=== PATIENT | male | born 1985 | race Caucasian/White ===

== ENCOUNTER 2019-02-03 15:30 | Inpatient (IN) | payer OTHER ==
[2019-02-03] MEDS ORDERED: MORPHINE SULFATE 2 MG/ML SYRINGE IVP STA ×2 (15:33→16:03)
[2019-02-03] MEDS ORDERED: ATORVASTATIN 80 MG TAB PO STA (15:41)
[2019-02-03] MEDS ORDERED: SODIUM CHLORIDE 0.9% 1,000 ML IV ONE ×2 (15:48→16:25)
[2019-02-03] MEDS ORDERED: NALOXONE 0.4 MG/ML 1 ML VIAL IV PRN (15:48)
[2019-02-03] MEDS ORDERED: HEPARIN SODIUM,PORCINE 5,000 UNIT/ML 1 ML VIAL IV STA (15:48)
[2019-02-03 16:04] LABS: Basophils # (A) 0.1 k/uL (0-0.2); Basophils % (A) 1 %; Eosinophils # (A) 0.3 k/uL (0-0.7); Eosinophils % (A) 3 %; HCT 39.6 % (39.0-53.0); Lymphocytes # (A) 3.1 k/uL (1.0-4.8); Lymphocytes % (A) 30 %; MCH 28.9 pg (25.0-35.0); MCHC 32.9 g/dL (31.0-37.0); MCV 87.8 fL (80.0-100.0); Mean Platelet Volume 7.7; Monocytes # (A) 0.9 k/uL (0-1.0); Monocytes % (A) 8 %; Neutrophils # (A) 5.4 k/uL (1.3-7.7); Neutrophils % (A) 53 %; Platelet Count 263 k/uL (150-450); RDW 12.7 % (11.5-15.5); WBC 10.1 k/uL (3.8-10.6)
[2019-02-03] MEDS ORDERED: LIDOCAINE 1% INJ 10MG/ML (20 ML MDV) ONE ×2 (16:08→16:29)
--- NOTE | 2019-02-03 16:11 | ED ---
General Adult HPI - General Chief complaint: Chest Pain Stated complaint: Chest Pain Time Seen by Provider: 02/03/19 15:33 Source: patient, EMS, RN notes reviewed Mode of arrival: EMS Limitations: no limitations - History of Present Illness Initial comments: 33-year-old male history of obesity, diabetes and Hodgkin's lymphoma on chemotherapy, presenting with sudden onset chest pain, syncope and head injury. Patient transported by EMS as a priority 1 with EKG evidence of acute ST segment elevated MT. Presenting with central chest pain diaphoresis and nausea. Pain began approximately one hour ago and has steadily worsened over that hours. He did have a syncopal episode with head trauma and LOC. He has a laceration above the left eye. Denied focal numbness or weakness. Denies abdominal pain. Denies any extremity pain or weakness. - Related Data Allergies Allergy/AdvReac Type Severity Reaction Status Date / Time No Known Allergies Allergy Verified 02/03/19 15:41 Review of Systems ROS Statement: Those systems with pertinent positive or pertinent negative responses have been documented in the HPI. ROS Other: All systems not noted in ROS Statement are negative. Past Medical History Past Medical History: Diabetes Mellitus Additional Past Medical History / Comment(s): hypothyroidism History of Any Multi-Drug Resistant Organisms: None Reported Past Surgical History: No Surgical Hx Reported Past Psychological History: No Psychological Hx Reported Smoking Status: Never smoker Past Alcohol Use History: None Reported Past Drug Use History: None Reported General Exam Limitations: no limitations General appearance: alert, in distress Head exam: Present: normocephalic. Absent: atraumatic (forehead contusion and laceration above the left eyebrow) Neck exam: Present: normal inspection. Absent: tenderness, meningismus Respiratory exam: Present: normal lung sounds bilaterally. Absent: respiratory distress, wheezes, rales Cardiovascular Exam: Present: regular rate, normal rhythm GI/Abdominal exam: Present: soft. Absent: distended, tenderness, guarding Extremities exam: Present: normal inspection, normal capillary refill, other (2+ bilateral radial and PT pulses) Neurological exam: Present: alert, oriented X3, CN II-XII intact. Absent: motor sensory deficit Psychiatric exam: Present: normal affect, normal mood Skin exam: Present: diaphoretic, pallor. Absent: warm, intact (1.5 cm laceration above the left eyebrow) Course Vital Signs 02/03/19 15:33 Temperature 98.6 F Pulse Rate 78 Respiratory 20 Rate Blood Pressure 101/60 O2 Sat by Pulse 100 Oximetry EKG Findings - EKG Comments: EKG Findings:: EKG: Acute MT, ST segment elevation in both the inferior and lateral precordial leads. ST segment depression in aVL and V1 and V2. Acute inferior MT. Rate of 79, NC interval 188, QRS duration 94, QTC 474. Procedures - Laceration Laceration #1 Consent Obtained: verbal consent Indication: laceration Site: face Description: linear Depth: simple, single layer Pre-repair: wound explored Type of Sutures: other Size of Sutures: other (skin good) Patient Tolerated Procedure: well Additional Comments: repaired with skin glue Medical Decision Making - Medical Decision Making 33-year-old male presenting with acute ST segment elevated MT, inferior elevation. Dyed [employer] Blower Feeder was immediately activated, case is discussed with cardiology. cardiology, Dr. Donahue is in-house and will take the patient for urgent heart catheterization, agrees with plan for urgent head CT. Given the head injury with loss consciousness and need for anticoagulation patient does receive head CT in the emergency department prior to transfer to the [employer]ed [employer] Blower Feeder. This was reviewed by myself in negative for intracranial hemorrhage. He was gi pepe aspirin by EMS as well as nitroglycerin prior to arrival. He is given a Lipitor, morphine, IV fluids, and heparin in the emergency department. He is transported immediately to the heart catheterization laboratory awaiting laboratory testing. diagnosis: ST segment elevated MT - Lab Data Result diagrams: 02/03/19 15:45 02/03/19 15:45 Lab Results 02/03/19 02/03/19 02/03/19 Range/Units 15:45 15:45 15:45 WBC 10.1 (3.8-10.6) k/uL RBC 4.50 (4.30-5.90) m/uL Hgb 13.0 (13.0-17.5) gm/dL Hct 39.6 (39.0-53.0) % MCV 87.8 (80.0-100.0) fL MCH 28.9 (25.0-35.0) pg MCHC 32.9 (31.0-37.0) g/dL RDW 12.7 (11.5-15.5) % Plt Count 263 (150-450) k/uL Neutrophils % 53 % Lymphocytes % 30 % Monocytes % 8 % Eosinophils % 3 % Basophils % 1 % Neutrophils # 5.4 (1.3-7.7) k/uL Lymphocytes # 3.1 (1.0-4.8) k/uL Monocytes # 0.9 (0-1.0) k/uL Eosinophils # 0.3 (0-0.7) k/uL Basophils # 0.1 (0-0.2) k/uL PT 9.9 (9.0-12.0) sec INR 0.9 (<1.2) APTT 21.7 L (22.0-30.0) sec Sodium 140 (137-145) mmol/L Potassium 3.5 (3.5-5.1) mmol/L Chloride 106 (98-107) mmol/L Carbon Dioxide 22 (22-30) mmol/L Anion Gap 12 mmol/L BUN 21 H (9-20) mg/dL Creatinine 0.91 (0.66-1.25) mg/dL Est GFR (CKD-EPI)AfAm >90 (>60 ml/min/1.73 sqM) Est GFR (CKD-EPI)NonAf >90 (>60 ml/min/1.73 sqM) Glucose 168 H (74-99) mg/dL Calcium 9.3 (8.4-10.2) mg/dL Magnesium 1.7 (1.6-2.3) mg/dL Total Bilirubin 0.8 (0.2-1.3) mg/dL AST 36 (17-59) U/L ALT 35 (4-49) U/L Alkaline Phosphatase 85 (38-126) U/L Total Protein 7.1 (6.3-8.2) g/dL Albumin 4.3 (3.5-5.0) g/dL Critical Care Time Critical Care Time: Yes Total Critical Care Time: 35 Disposition Clinical Impression: ST elevation myocardial infarction (STEMI) Disposition: ADMITTED IP TO THIS HOSP Condition: Serious Is patient prescribed a controlled substance at d/c from ED?: No Time of Disposition: 15:50
[2019-02-03 16:12] LABS: ALT 35 U/L (4-49); AST 36 U/L (17-59); African American GFR (CKD) >90 (>60 ml/min/1.73 sqM); Albumin 4.3 g/dL (3.5-5.0); Alkaline Phosphatase 85 U/L (38-126); Anion Gap 12 mmol/L; Blood Urea Nitrogen 21 mg/dL (9-20); Calcium 9.3 mg/dL (8.4-10.2); Carbon Dioxide 22 mmol/L (22-30); Chloride 106 mmol/L (98-107); Glucose 168 mg/dL (74-99); Magnesium 1.7 mg/dL (1.6-2.3); Non-African American GFR(CKD) >90 (>60 ml/min/1.73 sqM); Potassium 3.5 mmol/L (3.5-5.1); Sodium 140 mmol/L (137-145); Total Bilirubin 0.8 mg/dL (0.2-1.3); Total Protein 7.1 g/dL (6.3-8.2)
--- NOTE | 2019-02-03 16:13 | XR ---
EXAMINATION TYPE: XR chest 1V portable DATE OF EXAM: 02/03/2019 COMPARISON: NONE HISTORY: Chest pain TECHNIQUE: Single view FINDINGS: Heart and mediastinum are normal. Lungs are clear. Costophrenic angles are clear. There are chest leads. IMPRESSION: No active cardiopulmonary disease. Normal heart.
--- NOTE | 2019-02-03 16:22 | CT ---
EXAMINATION TYPE: CT brain wo con DATE OF EXAM: 02/03/2019 COMPARISON: None HISTORY: Chest pain with syncopal episode. Left orbital laceration CT DLP: 1129.4 mGycm Automated exposure control for dose reduction was used. Ventricles have normal size. There is no mass effect nor midline shift. There is no sign of intracran ial hemorrhage. The calvarium is intact. There is mild mucosal thickening in the ethmoid sinuses. The re is mild left frontal sinus mucosal thickening. IMPRESSION: Normal CT scan of the brain. Ethmoid and frontal sinusitis.
[2019-02-03 16:27] LABS: INR 0.9 (<1.2); Prothrombin Time 9.9 sec (9.0-12.0)
[2019-02-03] MEDS ORDERED: MIDAZOLAM 2 MG/2 ML VIAL IV ONE (16:27)
[2019-02-03] MEDS ORDERED: LIDOCAINE 1% INJ 10MG/ML (20 ML MDV) SQ ONE (16:28)
[2019-02-03] MEDS ORDERED: HYDROmorphone 1 MG/ML 1 ML SYRINGE ONE (16:30)
[2019-02-03 16:32] LABS: Partial Thromboplastin Time 21.7 sec (22.0-30.0)
[2019-02-03] MEDS ORDERED: HYDROmorphone 1 MG/ML 1 ML SYRINGE IVP ONE (16:32)
[2019-02-03] MEDS ORDERED: BIVALIRUDIN BOLUS 250 MG/50 ML IV ONE (16:35)
[2019-02-03] MEDS ORDERED: ONDANSETRON 4 MG/2 ML VIAL ONE (16:36)
[2019-02-03] MEDS ORDERED: BIVALIRUDIN 250 MG in SODIUM CHLORIDE 0.9% 50 ML IV ONE (16:38)
[2019-02-03] MEDS ORDERED: ONDANSETRON 4 MG/2 ML VIAL IVP ONE (16:45)
[2019-02-03] MEDS ORDERED: TOPICAL SKIN ADHESIVE 1 EACH AMP TOPICAL ONE (16:48)
[2019-02-03] MEDS ORDERED: PRASUGREL 10 MG TAB ONE ×2 (16:48→17:33)
[2019-02-03] MEDS ORDERED: NITROGLYCERIN 1000MCG/10ML SYRINGE INTRACORON ONE (16:51)
[2019-02-03] MEDS ORDERED: PRASUGREL 10 MG TAB PO ONE ×2 (16:51→17:35)
[2019-02-03] MEDS ORDERED: IOPAMIDOL-370 125ML BTL INJ ONE (17:02)
[2019-02-03] MEDS ORDERED: ZOLPIDEM 5 MG TAB PO PRN (17:13)
[2019-02-03] MEDS ORDERED: ATROPINE SULFATE 0.1 MG/ML 10ML SYRINGE IV PRN (17:13)
[2019-02-03] MEDS ORDERED: RX INFO: IV CONTRAST WAS GIVEN 1 EACH MISC MISCELLANE PRN (17:13)
[2019-02-03] MEDS ORDERED: MAG HYDROX/AL HYDROX/SIMETH 30 ML CUP PO PRN (17:13)
[2019-02-03] MEDS ORDERED: NITROGLYCERIN SL TABS 0.4 MG TAB SUBLINGUAL PRN (17:13)
[2019-02-03] MEDS ORDERED: SODIUM CHLORIDE 0.9% 1,000 ML IV SCH (17:15)
--- NOTE | 2019-02-03 17:19 | P.CRDCN ---
History of Present Illness Consult date: 02/03/19 Chief complaint: chest pain History of present illness: this is a very pleasant 33-year-old gentleman who is [place] and was visiting the [place] for shopping with a past medical history significant for diabetes and also very significant family history of coronary artery disease with his father at age of 50 because of massive heart attack, was brought by ambulance to the emergency room because of acute anterior ST patient myocard ial infarction. The patient was doing shopping here at [employer] and he was sitting in the car waiting for his he started not feeling well where he started experiencing discomfort in the chest associated with sweating. He went out of the car and walked to the store to find his and at that point he was asked to sit till they page her. Certainly he collapsed and he lost his consciousness. Ambulance was called and the patient was found to be in acute inferior ST elevation myocardial infarction where I emergent heart catheterization was performed and revealed acute total occlusion of the right coronary artery in the midportion. I did perform an aspiration thrombectomy and I retrieved a large red clot from the right coronary artery. He was found to have severe plaque appears to be in the range of 90%. I did successful stenting of the right coronary artery using 2 stents with an excellent angiographic results and without excellent angiographic results and reduction of stenosis and 100% to 0%. The procedure was performed without any complication was ARASH-3 flow by the end as well as with the resulting of the ST changes as well as the chest discomfort. The patient will be admitted to the intensive care unit. He would be on dual antiplatelet therapy along with small dose of metoprolol as well as on lisinopril and also would be a high intensity statin. An echocardiogram will be performed to evaluate the left ventricular systolic function. Past Medical History Past Medical History: Diabetes Mellitus Additional Past Medical History / Comment(s): hypothyroidism History of Any Multi-Drug Resistant Organisms: None Reported Past Surgical History: No Surgical Hx Reported Past Psychological History: No Psychological Hx Reported Smoking Status: Never smoker Past Alcohol Use History: None Reported Past Drug Use History: None Reported Medications and Allergies Allergies Allergy/AdvReac Type Severity Reaction Status Date / Time No Known Allergies Allergy Verified 02/03/19 15:41 Physical Exam Vitals: Vital Signs Temp Pulse Resp BP Pulse Ox 02/03/19 15:38 74 101/68 02/03/19 15:33 98.6 F 78 20 101/60 100 Intake and Output 02/03/19 02/03/19 02/03/19 06:59 14:59 22:59 Intake Total 287 Balance 287 Intake: IV 287 Other: Weight 127.006 kg - Constitutional General appearance: no acute distress - Respiratory Respiratory: bilateral: CTA - Cardiovascular Rhythm: regular Heart sounds: normal: S1, S2 Results 02/03/19 15:45 02/03/19 15:45 Cardiac Enzymes 02/03/19 02/03/19 Range/Units 15:45 15:45 AST 36 (17-59) U/L Troponin I <0.012 (0.000-0.034) ng/mL Coagulation 02/03/19 Range/Units 15:45 PT 9.9 (9.0-12.0) sec APTT 21.7 L (22.0-30.0) sec CBC 02/03/19 Range/Units 15:45 WBC 10.1 (3.8-10.6) k/uL RBC 4.50 (4.30-5.90) m/uL Hgb 13.0 (13.0-17.5) gm/dL Hct 39.6 (39.0-53.0) % Plt Count 263 (150-450) k/uL Comprehensive Metabolic Panel 02/03/19 Range/Units 15:45 Sodium 140 (137-145) mmol/L Potassium 3.5 (3.5-5.1) mmol/L Chloride 106 (98-107) mmol/L Carbon Dioxide 22 (22-30) mmol/L BUN 21 H (9-20) mg/dL Creatinine 0.91 (0.66-1.25) mg/dL Glucose 168 H (74-99) mg/dL Calcium 9.3 (8.4-10.2) mg/dL AST 36 (17-59) U/L ALT 35 (4-49) U/L Alkaline Phosphatase 85 (38-126) U/L Total Protein 7.1 (6.3-8.2) g/dL Albumin 4.3 (3.5-5.0) g/dL Current Medications Generic Name Dose Route Start Last Admin Trade Name Freq PRN Reason Stop Dose Admin Naloxone HCl 0.2 mg 02/03/19 15:48 Narcan IV Q2M PRN Opioid Reversal Intake and Output 02/03/19 02/03/19 02/03/19 06:59 14:59 22:59 Intake Total 287 Balance 287 Intake: IV 287 Other: Weight 127.006 kg Patient Weight 02/04/19 06:59 Weight 127.006 kg 02/03/19 15:45 02/03/19 15:45 Assessment and Plan Assessment: assessment #[address] patient myocardial infarction #2 cardiac arrest secondary to the above #3 status post PCI of the RCA #4 diabetes #5 significant family history of coronary artery disease Plan #1 dual antiplatelet therapy along with high intensity statin #2 anti-ischemic medication using metoprolol as well as lisinopril #3 an echocardiogram to establish LV function #4 ICU admission #5 follow-up with the patient Thank you for allowing us participate in his care and we will continue following up with the patient
[2019-02-03 18:08] LABS: Glucose,Whole Blood 200 mg/dL (75-99)
[2019-02-03] MEDS ORDERED: Potassium Replacement Protocol 1 EACH MISC MISCELLANE PRN (19:50)
[2019-02-03] MEDS ORDERED: Magnesium Replacement Protocol 1 EACH MISC MISCELLANE PRN (19:50)
[2019-02-03] MEDS: POTASSIUM CHLORIDE ER 20 MEQ TAB.ER PO SCH ×2 (20:29→22:22)
[2019-02-03] MEDS: METOPROLOL TARTRATE 12.5 MG TAB PO SCH (20:29)
[2019-02-03] MEDS: MAGNESIUM SULFATE-D5W PMX 1 GM in DEXTROSE/WATER 1 100ML.BAG IVPB SCH ×2 (20:30→22:22)
[2019-02-03 20:45] LABS: Glucose,Whole Blood 160 mg/dL (75-99)
--- NOTE | 2019-02-03 22:33 | CC ---
CARDIAC CATHETERIZATION REPORT PERFORMING PHYSICIAN: Jim Donahue M.D. PROCEDURE PERFORMED: 1. Selective right and left coronary angiogram. 2. Left heart catheterization. 3. Successful stenting of the mid right coronary artery using 4.5 x 18 and 4.5 x 13 mm multilink bare metal stent with an excellent angiographic results and reduction of stenosis from 100% to 0%. INDICATION: This is a 33-year-old gentleman with diabetes and significant family history of CAD, was brought to the emergency room with chest discomfort and was diagnosed with acute anterior ST-elevation myocardial infarction. An emergent heart catheterization was advised. APPROACH: Right common femoral artery. COMPLICATION: None. LEVEL OF SEDATION: Moderate with sedation length of 36 minutes. Door to balloon was 70 minutes. DESCRIPTION OF PROCEDURE: After obtaining informed consent, the patient was brought to the cardiac manager labor delivery. The right common femoral artery was cannulated using micropuncture technique, the micropuncture wire passed easily. Then I placed a 6-Macedonian sheath in the right common femoral artery. After that I did selective right and left coronary angiogram with JR4 and JL4 catheters. Left heart catheterization was performed using the JR4 catheter which crossed the aortic valve and then I did pullback across aortic valve. After that I did intervene on the right coronary artery please see a separate paragraph for that. SELECTIVE CORONARY ANGIOGRAM: 1. The right coronary artery is a large caliber vessel. It is a dominant vessel. The RCA is 100% occluded in the midportion. 2. The left main is angiographically normal. It bifurcates into LCX and LAD. 3. The LCX is a large caliber vessel. It is a nondominant vessel. The left circumflex appeared to be angiographically normal. It gives rise into 3 obtuse marginal branches. All are medium caliber vessel without any significant disease. 4. The LAD: The proximal LAD appeared to be angiographically normal. The proximal LAD appeared to have mild disease only. It gives rise into a large diagonal branch which seems to be angiographically normal. The mid LAD appeared to be normal and the LAD distally appeared to have mild disease only. HEMODYNAMICS: The LVEDP was about 12-14 mmHg without significant gradient across the aortic valve. PCI OF THE RCA: Anticoagulation was achieved using Angiomax with bolus and drip. After that, I took JR4 guide and the RCA was engaged. I did cross the lesion using a run-through wire. After that I did aspiration thrombectomy using an Rentz catheter with extraction of large red thrombus. After that, I tried to do balloon angioplasty using 3.5 x 12 mm balloon but the balloon was sludging forward or backward. At that point, I decided to go with a stent so I deployed 4.5 x 18 mm multilink bare metal stent where the stent was positioned under fluoroscopy guidance and deployed under 20 atmospheres for 20 seconds. The following angiogram showed proximal edge dissection which I decided to cover, so I used another multilink which was 4.5 x 13 mm with the second stent overlapping with the1st stent with about 2 mm. The second stent was deployed under 16 atmospheres for 20 seconds. The area of overlap between the 2 stents was dilated using the stent balloon. The following angiogram showed great angiographic results and the procedure was completed without any complication. CONCLUSION: 1. Acute anterior ST-elevation myocardial infarction. 2. Acute total occlusion of the RCA next. 3. Successful stenting of the RCA as described above. 4. Mild disease involving the left coronary system. POSTPROCEDURE MANAGEMENT: 1. Dual anti-platelet therapy. 2. ICU admission. 3. Risk factors modifications for aggressive cholesterol control. 4. Follow up with the patient. MMODL / IJN: [id number] /
[2019-02-04 04:45] LABS: Basophils # (A) 0.1 k/uL (0-0.2); Basophils % (A) 1 %; Eosinophils # (A) 0.1 k/uL (0-0.7); Eosinophils % (A) 1 %; HCT 37.3 % (39.0-53.0); HGB 12.3 gm/dL (13.0-17.5); Lymphocytes # (A) 1.7 k/uL (1.0-4.8); Lymphocytes % (A) 14 %; MCH 29.7 pg (25.0-35.0); MCHC 32.9 g/dL (31.0-37.0); MCV 90.3 fL (80.0-100.0); Mean Platelet Volume 7.9; Monocytes # (A) 0.7 k/uL (0-1.0); Monocytes % (A) 6 %; Neutrophils % (A) 77 %; Platelet Count 243 k/uL (150-450); RBC 4.12 m/uL (4.30-5.90); RDW 12.9 % (11.5-15.5); WBC 11.8 k/uL (3.8-10.6)
[2019-02-04 04:56] LABS: African American GFR (CKD) >90 (>60 ml/min/1.73 sqM); Anion Gap 6 mmol/L; Blood Urea Nitrogen 18 mg/dL (9-20); Calcium 8.8 mg/dL (8.4-10.2); Carbon Dioxide 24 mmol/L (22-30); Chloride 106 mmol/L (98-107); Glucose 194 mg/dL (74-99); Non-African American GFR(CKD) >90 (>60 ml/min/1.73 sqM); Potassium 4.4 mmol/L (3.5-5.1); Sodium 136 mmol/L (137-145)
[2019-02-04 06:56] LABS: Glucose,Whole Blood 177 mg/dL (75-99)
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
[2019-02-04] MEDS: ASPIRIN 325 MG TAB PO SCH (09:20)
[2019-02-04] MEDS: FAMOTIDINE 20 MG/2 ML VIAL IV SCH ×2 (09:20→21:15)
[2019-02-04] MEDS: PRASUGREL 10 MG TAB PO SCH (09:21)
[2019-02-04] MEDS: METOPROLOL TARTRATE 12.5 MG TAB PO SCH ×2 (09:21→21:15)
[2019-02-04] MEDS: HEPARIN SODIUM,PORCINE 5,000 UNIT/ML 1 ML VIAL SQ SCH ×2 (09:23→21:14)
[2019-02-04] MEDS: LEVOTHYROXINE 125 MCG TAB PO SCH (10:40)
[2019-02-04 11:34] LABS: Glucose,Whole Blood 160 mg/dL (75-99)
[2019-02-04] MEDS: LISINOPRIL 2.5 MG TAB PO SCH (11:41)
[2019-02-04] MEDS: INSULIN ASPART (NovoLOG) 100 UNIT/ML VIAL SQ SCH ×3 (11:46→21:21)
[2019-02-04 12:08] VITALS: BMI 39.0
--- NOTE | 2019-02-04 13:08 | PN ---
PROGRESS NOTE This patient was admitted with acute inferior wall myocardial infarction and underwent a stent to the RCA. The patient also has a history of diabetes as well as relapsing and Hodgkin disease. He is feeling well. Denies any chest pain. Denies any shortness of breath. No dysrhythmias are noted. The patient's blood pressure is 100/60 mmHg. First and second heart sounds are normal. Lungs are clinically clear to auscultation and percussion. We will continue the current medications. MMODL / IJN: [id number] /
[2019-02-04 13:33] LABS: Cholesterol 181 mg/dL (<200); HDL Cholesterol 28 mg/dL (40-60); LDL Cholesterol,Calculated 128 mg/dL (0-99); Triglycerides 126 mg/dL (<150)
[2019-02-04 16:40] LABS: Glucose,Whole Blood 115 mg/dL (75-99)
[2019-02-04 20:15] LABS: Glucose,Whole Blood 120 mg/dL (75-99)
[2019-02-04] MEDS ORDERED: ATORVASTATIN 80 MG TAB PO SCH (21:00)
[2019-02-05 04:51] LABS: Basophils # (A) 0.1 k/uL (0-0.2); Basophils % (A) 1 %; Eosinophils # (A) 0.3 k/uL (0-0.7); Eosinophils % (A) 3 %; HCT 38.3 % (39.0-53.0); HGB 12.7 gm/dL (13.0-17.5); Lymphocytes % (A) 24 %; MCH 29.8 pg (25.0-35.0); MCHC 33.1 g/dL (31.0-37.0); MCV 90.1 fL (80.0-100.0); Mean Platelet Volume 7.8; Monocytes # (A) 0.7 k/uL (0-1.0); Monocytes % (A) 8 %; Neutrophils % (A) 60 %; Platelet Count 240 k/uL (150-450); RBC 4.25 m/uL (4.30-5.90); RDW 12.8 % (11.5-15.5); WBC 8.3 k/uL (3.8-10.6)
[2019-02-05 05:07] LABS: African American GFR (CKD) >90 (>60 ml/min/1.73 sqM); Anion Gap 4 mmol/L; Blood Urea Nitrogen 15 mg/dL (9-20); Calcium 9.1 mg/dL (8.4-10.2); Carbon Dioxide 27 mmol/L (22-30); Chloride 107 mmol/L (98-107); Glucose 112 mg/dL (74-99); Non-African American GFR(CKD) >90 (>60 ml/min/1.73 sqM); Potassium 4.4 mmol/L (3.5-5.1); Sodium 138 mmol/L (137-145)
[2019-02-05] MEDS: INSULIN ASPART (NovoLOG) 100 UNIT/ML VIAL SQ SCH ×3 (07:00→18:39)
[2019-02-05] MEDS: LEVOTHYROXINE 125 MCG TAB PO SCH (07:00)
[2019-02-05 07:08] LABS: Glucose,Whole Blood 116 mg/dL (75-99)
[2019-02-05] MEDS: FAMOTIDINE 20 MG/2 ML VIAL IV SCH (07:53)
[2019-02-05] MEDS: ASPIRIN 325 MG TAB PO SCH (07:53)
[2019-02-05] MEDS: LISINOPRIL 2.5 MG TAB PO SCH (07:54)
[2019-02-05] MEDS: HEPARIN SODIUM,PORCINE 5,000 UNIT/ML 1 ML VIAL SQ SCH (07:54)
[2019-02-05] MEDS: METOPROLOL TARTRATE 12.5 MG TAB PO SCH (07:54)
[2019-02-05] MEDS: PRASUGREL 10 MG TAB PO SCH (07:55)
--- NOTE | 2019-02-05 10:40 | ECHOF ---
Referral Reason:STEMI MEASUREMENTS -------- HEIGHT: 182.9 cm WEIGHT: 126.6 kg BP: RVIDd: 2.3 cm (< 3.3) IVSd: 0.9 cm (0.6 - 1.1) LVIDd: 4.4 cm (3.9 - 5.3) LVPWd: 1.1 cm (0.6 - 1.1) IVSs: 1.3 cm LVIDs: 3.5 cm LVPWs: 1.6 cm LAESV Index (A-L): 20.79 ml/m IVSd: 2.8 cm (0.6 - 1.1) Ao Diam: 2.6 cm (2.0 - 3.7) AV Cusp: 1.7 cm (1.5 - 2.6) LA Diam: 3.2 cm (2.7 - 3.8) MV EXCURSION: 16.920 mm (> 18.000) MV EF SLOPE: 91 mm/s (70 - 150) EPSS: 1.2 cm MV E Geronimo: 1.13 m/s MV DecT: 251 ms MV A Geronimo: 0.82 m/s MV E/A Ratio: 1.38 RAP: 5.00 mmHg RVSP: 36.00 mmHg TAPSE: 22.26 mm FINDINGS -------- Sinus rhythm. This was a technically good study. The left ventricular size is normal. Left ventricular wall thickness is normal. Overall left vent ricular systolic function is mildly impaired with, an EF between 45 - 50 %. 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 Basal inferior LV wall motion is hypokinetic. Mid inferior LV wall motion is hypokinetic. The right ventricle is normal in size. The right ventricular systolic function is normal. The left atrial size is normal. Normal LA size by volume 22+/-6 ml/m2. The right atrial size is normal. The aortic valve is trileaflet and appears structurally normal. The mitral valve is normal. The mitral valve leaflets are mildly thickened. [id number]-[id number] mi tral regurgitation is present. The tricuspid valve appears structurally normal. Mild tricuspid regurgitation present. Right vent ricular systolic pressure is normal at < 35 mmHg. There is no pulmonic regurgitation present. The aortic root size is normal. Normal inferior vena cava with normal inspiratory collapse consistent with estimated right atrial pre ssure of 5 mmHg. There is no pericardial effusion. CONCLUSIONS -------- 1. Sinus rhythm. 2. This was a technically good study. 3. The left ventricular size is normal. 4. Left ventricular wall thickness is normal. 5. Overall left ventricular systolic function is mildly impaired with, an EF between 45 - 50 %. 6. Normal LAP Grade 1 Diastolic Dysfunction. 7. Basal inferior LV wall motion is hypokinetic. 8. Mid inferior LV wall motion is hypokinetic. 9. The right ventricle is normal in size. 10. The right ventricular systolic function is normal. 11. The left atrial size is normal. 12. Normal LA size by volume 22+/-6 ml/m2. 13. The right atrial size is normal. 14. The aortic valve is trileaflet and appears structurally normal. 15. The mitral valve is normal. 16. The mitral valve leaflets are mildly thickened. 17. Neynpnap-cf-vbnkyf mitral regurgitation is present. 18. The tricuspid valve appears structurally normal. 19. Mild tricuspid regurgitation present. 20. Right ventricular systolic pressure is normal at < 35 mmHg. 21. There is no pulmonic regurgitation present. 22. The aortic root size is normal. 23. Normal inferior vena cava with normal inspiratory collapse consistent with estimated right atrial pressure of 5 mmHg. 24. There is no pericardial effusion. [employer] BUILDER: Zuly Garber RDCS
[2019-02-05 12:19] LABS: Glucose,Whole Blood 118 mg/dL (75-99)
[2019-02-05 13:50] LABS: Hemoglobin A1C 6.6 % (4.0-6.0)
[2019-02-05] MEDS ORDERED: metFORMIN 500 MG TAB PO SCH (17:00)
[2019-02-05 17:24] LABS: Glucose,Whole Blood 175 mg/dL (75-99)
[2019-02-05 17:27] VITALS: BP 102/65; PULSE 82; RESP 16; TEMP 98.1
[2019-02-05] MEDS ORDERED: FAMOTIDINE 20 MG TAB PO SCH (21:00)
[2019-02-06] MEDS ORDERED: ASPIRIN 81 MG PO SCH (09:00)
== END 2019-02-05 18:40 | disposition home or self-care (01) | DRG 249 ==
LOC: EC 15:30 → 2SICU 15:48
PROVIDERS: ADMIT Internal Medicine; ATTEND Internal Medicine
PROC: 4A023N7 Measurement of Cardiac Sampling and Pressure, Left Heart, Percutaneous Approach (ICD-10-PCS; 2019-02-03)
PROC: B2111ZZ Fluoroscopy of Multiple Coronary Arteries using Low Osmolar Contrast (ICD-10-PCS; 2019-02-03)
PROC: 02703EZ Dilation of Coronary Artery, One Artery with Two Intraluminal Devices, Percutaneous Approach (ICD-10-PCS; principal; 2019-02-03 16:05)
PROC: 02C03ZZ Extirpation of Matter from Coronary Artery, One Artery, Percutaneous Approach (ICD-10-PCS; 2019-02-03 16:05)
DX: I21.09 ST elevation (STEMI) myocardial infarction involving other coronary artery of anterior wall (principal); C85.90 Non-Hodgkin lymphoma, unspecified, unspecified site; S09.90XA Unspecified injury of head, initial encounter; R55 Syncope and collapse; E11.9 Type 2 diabetes mellitus without complications; D72.829 Elevated white blood cell count, unspecified; E03.9 Hypothyroidism, unspecified; I25.10 Atherosclerotic heart disease of native coronary artery without angina pectoris; S01.112A Laceration without foreign body of left eyelid and periocular area, initial encounter; E66.9 Obesity, unspecified; Z79.84 Long term (current) use of oral hypoglycemic drugs; Z79.890 Hormone replacement therapy; Z68.39 Body mass index [BMI] 39.0-39.9, adult; Z82.49 Family history of ischemic heart disease and other diseases of the circulatory system; Z83.3 Family history of diabetes mellitus
CPT/HCPCS: 12011; 36415; 70450; 71045; 80048; 80053; 80061; 83036; 83735; 84484; 85025; 85610; 85730; 92941; 93005; 93306; 93458; 96374; 96375; 96376; 99291